=== PATIENT | male | born 1960 | race Caucasian/White ===

== ENCOUNTER → 2022-08-03 09:14 | Outpatient (RCR) | payer OTHER, SELFPAY ==
[2020-08-25 14:33] LABS: COVID-19 Test Negative (Negative)
== END | disposition home or self-care (01) ==
LOC: HO.EMPCOV 08-25 14:03
PROVIDERS: Visit Provider Internal Medicine
DX: Z20.828 Contact with and (suspected) exposure to other viral communicable diseases (principal)
CPT/HCPCS: 87635; C9803